=== PATIENT | female | born 1960 | race Two or more races ===

== ENCOUNTER 2018-11-03 08:14 | Day surgery (SDC) | payer OTHER ==
[~2018-11-03] VITALS: Ht 167.6 cm; Wt 120.0 kg
[~2018-11-03 08:14] MED LIST: ALBU18HF INHALATION; CETI10CA PO; D-ME473S2 PO
[2018-11-03 09:05] VITALS: Ht 167.6 cm; Wt 120.0 kg
[2018-11-03 09:37] VITALS: BP 146/75; PULSE 68; RESP 13
[2018-11-03] MEDS ORDERED: PROPOFOL 20 ML ONE (09:55)
[2018-11-03] MEDS ORDERED: MIDAZOLAM 1 MG/ML 2 ML INJ ONE (09:55)
[2018-11-03] MEDS ORDERED: ETOMIDATE 20 MG INJ ONE (09:57)
--- NOTE | 2018-11-03 10:04 | PREAC ---
Date/Time of Note Date/Time of Note DATE: 11/03/18 TIME: 10:03 Anesthesia Eval and Record Evaluation Time Pre-Procedure Interview DATE: 11/03/18 TIME: 10:03 Age 58 Sex female NPO: 8 hrs Preoperative diagnosis abdominal pain and constipation Planned procedure egd and colonoscopy Past Medical History Past Medical History: Includes Pulm: Asthma GI: Morbid obesity Surgery & Anesthesia Issues No known issue Meds Anticoagulation: No Beta Jae within 24 hr: No Reason Beta Jae not given: Pt. not on B-Jae Active Scripts Cetirizine Hcl* (Zyrtec*) 10 Mg Capsule, 10 MG PO DAILY for cough, #20 TAB.CHEW Prov:FARHANA HUNT 06/15/18 Dextromethorphan Hb-Promethazine Hcl* (Promethazine DM* Syrup) 473 Ml Syrup, 5 ML PO Q6 PRN for COUGH, #4 OZ Prov:FARHANA HUNT 06/15/18 Albuterol Sulfate* (Ventolin HFA*) 18 Gm Hfa.aer.ad, 2 PUFF INHALATION Q4H, #1 INHALER Prov:FARHANA HUNT 06/15/18 Meds reviewed: Yes Allergies Allergies Reviewed: Yes Labs/Studies Labs Reviewed: Reviewed by anesthesiologist test: N/A Pre-procedure Exam Last vitals Vital Signs Date Temp Pulse Resp B/P (MAP) Pulse Ox O2 O2 Flow FiO2 Time Delivery Rate 11/03/18 68 13 146/75 95 Room Air 09:37 (98) Airway: Adequate mouth opening, Adequate thyromental dist Mallampati: Mallampati IV Teeth: Normal Lung: Normal Heart: Normal ASA Physical Status ASA physical status: 3 Emergency: None Pre-operative Attestations Prior to commencing anesthesia and surgery, the patient was re-evaluated, there was verification of: *The patient's identity *The results of appropriate recent lab work and preoperative vital signs *The above evaluation not changing prior to induction *Anesthetic plan, risk benefits, alternative and complications discussed with patient/family; questions answered; patient/family understands, accepts and wishes to proceed. MARC RASHEED DO Nov 03, 2018 10:04
[2018-11-03] MEDS ORDERED: LIDOCAINE 4% SOLUTION 50 ML BTL ONE (10:06)
[2018-11-03] MEDS ORDERED: LABETALOL HCL 20MG INJ IV PRN (10:30)
[2018-11-03] MEDS ORDERED: HYDROmorphONE 1 MG/5 ML IV SYRINGE IV PRN (10:30)
[2018-11-03] MEDS ORDERED: ONDANSETRON 4 MG INJ IV PRN (10:30)
[2018-11-03 10:32] VITALS: BP 109/57; PULSE 65; RESP 18
--- NOTE | 2018-11-03 10:35 | PAC ---
Date/Time of Note Date/Time of Note DATE: 11/03/18 TIME: 10:34 Post-Anesthesia Notes Post-Anesthesia Note Last documented vital signs Vital Signs Date Temp Pulse Resp B/P (MAP) Pulse Ox O2 O2 Flow FiO2 Time Delivery Rate 11/03/18 98 62 15 101/63 99 mask 1035 Activity: WNL Respiratory function: WNL Cardiovascular function: WNL Mental status: Baseline Pain reasonably controlled: Yes Hydration appropriate: Yes Nausea/Vomiting absent: Yes MARC RASHEED DO Nov 03, 2018 10:35
[2018-11-03 10:58] VITALS: BP 115/70; PULSE 65; RESP 18
== END 2018-11-03 12:31 | disposition home or self-care (01) ==
LOC: GIL 08:14
PROVIDERS: ATTEND Internal Medicine Gastroenterology
DX: Z12.11 Encounter for screening for malignant neoplasm of colon (principal); K64.8 Other hemorrhoids; K57.30 Diverticulosis of large intestine without perforation or abscess without bleeding; K44.9 Diaphragmatic hernia without obstruction or gangrene; K21.0 Gastro-esophageal reflux disease with esophagitis; J45.909 Unspecified asthma, uncomplicated; E66.9 Obesity, unspecified; Z68.41 Body mass index [BMI] 40.0-44.9, adult
CPT/HCPCS: 43239; 45378; 88305; 88312; J2250; Z7610